=== PATIENT | male | born 1945 | race Caucasian/White ===

== ENCOUNTER 2016-08-23 10:45 | Emergency (ER) | payer MEDICARE, BC ==
[2016-08-23 10:59] VITALS: TEMP 98.3; BMI 33.3
[2016-08-23] MEDS ORDERED: NS 1,000 ML IV ONE (11:27)
[2016-08-23] MEDS ORDERED: Clindamycin 900 mg/D5W 50 ml 900 MG/50 ML IVB IV ONE (11:28)
[2016-08-23 11:51] LABS: AUTOMATED BASOPHIL 0.9 % (0-2); AUTOMATED LYMPH 8.3 % (17-44); AUTOMATED MONOCYTE 10.8 % (3-10)
[2016-08-23 12:07] LABS: PARTIAL THROMB. TIME 26.8 SEC (22-35)
[2016-08-23] MEDS ORDERED: CIPROFLOXACIN HCL 500 MG TAB PO ONE (12:13)
[2016-08-23 12:15] LABS: BLOOD UREA NITROGEN 21 MG/DL (9-20); CALC CORRECTED 9.5 MG/DL (8.4-10.2); CALCIUM 9.3 MG/DL (8.4-10.2); CALCULATED OSMOLALITY 267 MOs/Kg (270-290); CHLORIDE 104 mEq/L (98-107); CPK TOTAL WITH POSSIBLE MB 53 IU/L (55-170); GLUCOSE 91 MG/DL (70-99); SODIUM LEVEL 137 mEq/L (137-146); TOTAL PROTEIN 6.9 G/DL (6.3-8.2)
--- NOTE | 2016-08-23 12:17 | EDPRACDOC ---
- General Information Chief Complaint: Wound Stated Complaint: ANKLE PAIN Time Seen by Provider: 08/23/16 11:19 Information Source: Patient Home Medications: Home Medications Aspirin [Aspirin EC] 81 mg PO DAILY 08/23/16 Atorvastatin Calcium [Lipitor] 80 mg PO DAILY 08/23/16 Ciprofloxacin HCl [Cipro] 500 mg PO BID #20 tab 08/23/16 Lisinopril [Prinivil] 10 mg PO DAILY 08/23/16 Metoprolol Tartrate [Lopressor] 12.5 mg PO BID 08/23/16 Allergies/Adverse Reactions: Allergies Allergy/AdvReac Type Severity Reaction Status Date / Time No Known Allergies Allergy Verified 08/23/16 10:58 - History of Present Illness Onset: last night HPI: PT PRESENTS WITH LEFT LOWER LEG EDEMA AND REDNESS. PT IS NOT FROM THIS AREA AND IS WISHING TO GET ANTIBIOTICS UNTIL HE CAN GET HOME. DENIES FEVER, CHILLS, NAUSEA OR VOMITING. Mechanism: Reports: None Circumstances: Reports: None History of: Reports: Other (PREVIOUS CELLULITIS TO THIS AREA) Last Tetanus: Unknown Severity: Reports: Mild, Moderate Able to Bear Weight: Fully Associated Signs & Symptoms: Reports: Swelling Pain In: Reports: Foot, Ankle ED Past Medical History - History Reviewed Yes Nurses notes reviewed and agree except as marked - Patient Medical History Cardiac History: Reports: Hypertension, Heart Attack, Hypercholesterolemia Psychological History: Denies: Depression - Social Medical History Smoking Status: Never smoker EDM Review of Systems - Review of Systems ROS Negative Except as Marked: Yes All systems reviewed and were negative except as marked - Physical Exam Constitutional: Alert (Awake), No apparent distress Oriented to: Time, Person, Place Last recorded Vital Signs: Last Vital Signs Temp 98.3 F 08/23/16 10:56 Pulse 80 08/23/16 10:56 Resp 20 08/23/16 10:56 BP 122/61 08/23/16 10:56 Pulse Ox 96 08/23/16 10:56 Oxygen Pulse Oxygen Saturation 96 O2 Device Room Air Oxygen Flow Rate Fraction of Inspired Oxygen ( FIO2) - HEENT Head: Normal ( normocephalic) Eye Exam: Normal (PERRL, EOMI, Sclera white) Oropharynx: Normal (Pharynx:Moist without exudate,Gums-no swelling) Tympanic Membrane: Normal Nose: No Symptoms Reported (septum midline) Neck: Normal (FROM, trachea at midline) - Respiratory/Cardiovascular Respiratory: Normal - CTA (BBS clear to auscultation without adventitious sounds ) Cardiovascular: Normal (RRR without murmur, gallop or rub) - GI Auscultation: Normal (NABS) Palpation: Normal (Soft,No rebound or guarding, non distended) Tenderness: Non tender Moralez's Sign: Negative Rectal Exam: Deferred - Musculoskeletal Back: Normal Extremities: Edema (LEFT LOWER LEG), Pedal Edema (2+), Pedal Pulse (2+) - Integumentary Skin: Normal, Warm, Dry Lymphatics: Normal (no adenopathy) - Neurologic Memory Impaired: Normal Motor Function: Normal (Normal tone, Pulses 2+ No cyanosis or edema, FROM) Cranial Nerve: Normal (CN II-X11 intact sensation, strength 5/5) Cerebellar: Normal Mood Description: Normal Perception: Normal - Differential Diagnosis Other - Results 08/23/16 11:30 08/23/16 11:30 WBC 12.7 xk/uL (3.8-10.8) H 08/23/16 11:30 RBC 4.57 xM/uL (4.70-6.10) L 08/23/16 11:30 Hgb 13.6 g/dL (14.0-18.0) L 08/23/16 11:30 Hct 40.3 % (42-52) L 08/23/16 11:30 MCV 88 fL (80-94) 08/23/16 11:30 MCH 29.7 pg (27-32) 08/23/16 11:30 MCHC 33.7 g/dl (33-36) 08/23/16 11:30 RDW 14.1 % (11.5-14.5) 08/23/16 11:30 Plt Count 150 xk/uL (130-400) 08/23/16 11:30 MPV 9.0 fL (7.4-10.4) 08/23/16 11:30 Neut % (Auto) 79.0 % (45-76) H 08/23/16 11:30 Lymph % (Auto) 8.3 % (17-44) L 08/23/16 11:30 [place] % (Auto) 10.8 % (3-10) H 08/23/16 11:30 Eos % (Auto) 1.0 % (0-5) 08/23/16 11:30 Baso % (Auto) 0.9 % (0-2) 08/23/16 11:30 Absolute Neuts (auto) 10.03 xk/uL (1.7-8.2) H 08/23/16 11:30 Absolute Lymphs (auto) 1.02 xk/uL (0.65-4.75) 08/23/16 11:30 Lab Results 08/23/16 11:30 WBC 12.7 H RBC 4.57 L Hgb 13.6 L Hct 40.3 L MCV 88 MCH 29.7 MCHC 33.7 RDW 14.1 Plt Count 150 MPV 9.0 Neut % (Auto) 79.0 H Lymph % (Auto) 8.3 L [place] % (Auto) 10.8 H Eos % (Auto) 1.0 Baso % (Auto) 0.9 Absolute Neuts (auto) 10.03 H Absolute Lymphs (auto) 1.02 Decision Time to Discharge: 12:19 - Departure Disposition: Home Final Diagnosis: Cellulitis Qualifiers: Site of cellulitis: extremity Site of cellulitis of extremity: lower extremity Laterality: left Qualified Code(s): L03.116 - Cellulitis of left lower limb Instructions: Cellulitis (ED) Education/Counseling Given To: Patient Education/Counseling Given Regarding: Diagnosis, Treatment, Prognosis, Follow Up Referrals: Darrell Maurice II, MD [Staff Physician] - One Week Prescriptions: Ciprofloxacin HCl [Cipro] 500 mg PO BID #20 tab Additional Instructions: INCREASE FLUID INTAKE. FOLLOW UP WITH PRIMARY CARE PROVIDER NEXT WEEK. TAKE ALL ANTIBIOTICS PRESCRIBED. RETURN TO THE ED FOR WORSENING SYMPTOMS OR CONCERNS.
[2016-08-23 12:30] VITALS: BP 117/63; PULSE 72
== END 2016-08-23 12:40 | disposition home or self-care (01) ==
LOC: ED 10:45
DX: L03.116 Cellulitis of left lower limb (principal)
CPT/HCPCS: 36415; 80053; 82550; 83605; 83880; 84484; 85025; 85610; 85730; 87040; 93005; 99283; A9270; J3490